=== PATIENT | female | born 1975 | race Caucasian/White ===

== ENCOUNTER 2020-09-17 20:11 | Emergency (ER) | payer SELFPAY ==
[~2020-09-17] VITALS: Ht 162.6 cm; Wt 69.0 kg
--- NOTE | 2020-09-17 20:38 | NUR ---
pt in bed with pulse ox and bp cuff in place, denies pain complaining of nausea. with fiance at bedside. bed rails up bilaterally and call light on lap no signs or symptoms of acute distress noted respirations even and unlabored
[2020-09-17 20:57] LABS: BASOPHILS % (AUTO) 1 % (0-1); EOSINOPHILS % (AUTO) 1 % (1-7); LYMPHOCYTES % (AUTO) 35 % (22-44); MEAN CORPUSCULAR HEMOGLOBIN 32.1 pg (27.0-34.8); MEAN CORPUSCULAR HGB CONC 34.4 g/dL (32.4-35.8); MEAN PLATELET VOLUME 8.1 fL (7.4-10.4); MONOCYTES % (AUTO) 7 % (2-9); NEUTROPHILS % (AUTO) 56 % (42-75); PLATELET COUNT 287 x10^3/uL (130-400); RED BLOOD COUNT 4.27 x10^6/uL (3.82-5.3); RED CELL DISTRIBUTION WIDTH 12.9 % (9.6-15.2)
[2020-09-17 21:00] LABS: MD NO
[2020-09-17] MEDS ORDERED: SODIUM CHLORIDE 0.9% 1,000ML IVBOLUS ONE (21:00)
[2020-09-17] MEDS ORDERED: ONDANSETRON 2MG/ML, 2ML ONE (21:00)
[2020-09-17] MEDS ORDERED: PLEASE ENTER ALLERGIES MC SCH (21:00)
[2020-09-17] MEDS ORDERED: ONDANSETRON 2MG/ML, 2ML IVPush ONE (21:00)
[2020-09-17] MEDS ORDERED: SODIUM CHLORIDE FLUSH 10ML SYR IVF ONE (21:00)
[2020-09-17 21:10] LABS: ALANINE AMINOTRANSFERASE 25 U/L (12-78); ALBUMIN 3.5 g/dL (3.4-5.0); ANION GAP 6 mmol/L (5-15); CALCIUM 8.4 mg/dL (8.5-10.1); CHLORIDE 107 mmol/L (98-107); CREATININE 0.79 mg/dL (0.55-1.02)
[2020-09-17 21:13] LABS: ALKALINE PHOSPHATASE 38 U/L (45-117); BILIRUBIN,TOTAL 0.3 mg/dL (0.2-1.0); TOTAL PROTEIN 6.7 g/dL (6.4-8.2)
--- NOTE | 2020-09-17 23:06 | NUR ---
pt up to ambulate to bathroom walked with steady gait and good balance returned safely to bed pt reports feeling better. ua collected and sent to lab. pt in bed with no signs or symptoms of acute distress noted respirations even and unlabored
[2020-09-17 23:21] LABS: MICROSCOPIC NOT IND
[2020-09-17 23:24] VITALS: BP 120/81
== END 2020-09-17 23:42 | disposition home or self-care (01) ==
LOC: ED 23:22
DX: R11.2 Nausea with vomiting, unspecified (principal); R42 Dizziness and giddiness
CPT/HCPCS: 36415; 80053; 81003; 83690; 85025; 93005; 96361; 96374; 99284; J2405; J7030